=== PATIENT | female | born 2000 | race African-American/Black ===

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

== ENCOUNTER 2021-11-19 22:25 | Emergency (ER) | payer SELFPAY ==
[~2021-11-19] VITALS: Ht 167.6 cm; Wt 56.1 kg
[2021-11-19] MEDS ORDERED: CEPH500C2 MT (23:54)
[2021-11-19] MEDS ORDERED: SULF1TAB48 MT (23:54)
[2021-11-19] MEDS ORDERED: IBUP-2029 MT (23:54)
[2021-11-20] MEDS ORDERED: LIDOCAINE HCL/PF 1% 10 MG/ML 5ML VIAL INFIL ONE
[2021-11-20] MEDS ORDERED: IBUPROFEN 600MG TABLET PO ONE
[2021-11-20] MEDS ORDERED: TETANUS, DIPHTHERIA, PERTUSSIS VAC/PF 0.5ML (>10YR OLD) IM ONE
[2021-11-20 00:08] VITALS: BP 105/66
== END 2021-11-20 00:55 | disposition home or self-care (01) ==
LOC: ER 22:25
DX: L02.31 Cutaneous abscess of buttock (principal)
CPT/HCPCS: 10060; 99282; J3490